=== PATIENT | male | born 1995 | race African-American/Black ===

== ENCOUNTER 2018-06-18 22:35 | Emergency (ER) | payer OTHER ==
[~2018-06-18] VITALS: Ht 188 cm; Wt 83.5 kg
[2018-06-18 22:45] VITALS: Ht 188 cm; Wt 83.5 kg
[2018-06-19 01:00] VITALS: BP 124/86
== END 2018-06-19 01:00 | disposition home or self-care (01) ==
LOC: ED 22:35
DX: S61.211A Laceration without foreign body of left index finger without damage to nail, initial encounter (principal); W26.8XXA Contact with other sharp object(s), not elsewhere classified, initial encounter; Y93.E9 Activity, other interior property and clothing maintenance; Y92.000 Kitchen of unspecified non-institutional (private) residence as the place of occurrence of the external cause; Y99.8 Other external cause status
CPT/HCPCS: J2001

== ENCOUNTER 2018-06-20 19:41 | Emergency (ER) | payer OTHER ==
[~2018-06-20] VITALS: Ht 188 cm; Wt 82.1 kg
[2018-06-20 19:46] VITALS: Ht 188 cm; Wt 82.1 kg
[2018-06-20 20:40] VITALS: BP 122/69
== END 2018-06-20 20:40 | disposition home or self-care (01) ==
LOC: ED 19:41
DX: S61.210D Laceration without foreign body of right index finger without damage to nail, subsequent encounter (principal); X58.XXXD Exposure to other specified factors, subsequent encounter